=== PATIENT | male | born 1985 ===

== ENCOUNTER 2017-10-19 01:21 | Emergency (ER) | payer OTHER ==
[2017-10-19 01:35] VITALS: BMI 26.4
--- NOTE | 2017-10-19 01:57 | C.PDOC ---
History Of Present Illness Pt was brought in for alcohol intoxication. Pt states that he has been drinking. Pt became agitated, combative and needed to be restrained for his safety as well as the safety of the staff. Placed on 1:1 observation. Time Seen by Provider: 10/19/17 01:57 Chief Complaint (Nursing): Substance Abuse History Per: Patient, EMS History/Exam Limitations: intoxication Onset/Duration Of Symptoms: Unknown Current Symptoms Are (Timing): Still Present Suicide/Self Injury Attempted (Context): None Modifying Factor(s): Alcohol Severity: Moderate Pain Scale Rating Of: 4 Associated Symptoms: Agitation. denies: Suicidal Thoughts Involuntary Hold By: None Recent travel outside of the [place]: No Additional History Per: Patient, EMS Past Medical History Reviewed: Historical Data, Nursing Documentation, Vital Signs Vital Signs: Last Vital Signs Temp 97.5 F L 10/19/17 01:36 Pulse 100 H 10/19/17 05:50 Resp 21 10/19/17 05:50 BP 129/73 10/19/17 05:50 Pulse Ox 97 10/19/17 05:54 Family History: States: No Known Family Hx - Social History Hx Alcohol Use: Yes (UNKNOWN) Hx Substance Use: No (UNKNOWN) Review Of Systems Review Of Systems: ROS cannot be obtained secondary to pt's inabilty to answer questions. Physical Exam - Physical Exam Appears: Combative, Agitated Skin: Warm, Dry Head: Other (2x3 cm superficial hematom r temporoparietal region, no crepitus) Eye(s): bilateral: Normal Inspection Nose: Normal Oral Mucosa: Moist Lips: Normal Appearing Neck: Supple Chest: Symmetrical Cardiovascular: Rhythm Regular Respiratory: No Rales, No Rhonchi, No Wheezing Gastrointestinal/Abdominal: Soft, No Tenderness, No Distention Back: Normal Inspection Extremity: Normal ROM Extremity: Bilateral: Atraumatic Pulses: Left Dorsalis Pedis: Normal, Right Dorsalis Pedis: Normal Neurological/Psych: Other (moves all extrmities) Gait: Unsteady ED Course And Treatment - Laboratory Results Result Diagrams: 10/19/17 02:07 10/19/17 02:07 O2 Sat by Pulse Oximetry: 97 Pulse Ox Interpretation: Normal - CT Scan/US Head CT Other Rad Studies (CT/US): Interpreted By Me, Read By Radiologist CT/US Interpretation: EXAM: CT Head Without Intravenous Contrast. CLINICAL HISTORY: 40 years old, male; Signs and symptoms; Other: Toxicated; Additional info: ETOH intox, r tempal. area hematoma. Pt severely toxicated and unapplied to sedated and he was moving too much. I. wasn't apple to complete the study,. TECHNIQUE: Axial computed tomography images of the head/brain without intravenous contrast. All CT scans at. this facility use one or more dose reduction techniques, viz.: automated exposure control; ma/kV. adjustment per patient size (including targeted exams where dose is matched to indication; i.e. head);. or iterative reconstruction technique. 391 images are submitted.Sagittal , axial and coronal MPR. reformatted images are submitted. Additional info: ETOH intox, r tempal area hematoma. Pt severely. intoxicated and unapplied to sedated and he was moving too much. I wasn't apple to complete the. study,. COMPARISON: No relevant prior studies available. FINDINGS: Artifacts: Limited due to motion and misregistration artifacts. Brain: Superior portion of the brain is not included in the examination. No hemorrhage. No. significant white matter disease. Ventricles: Unremarkable. No ventriculomegaly. Bones/joints: Nonspecific nasal deformity seen on image 101 series 601. Correlation with clinical. data is recommended if acute nasal fracture is clinically suspected. Soft tissues: Unremarkable. Sinuses: Patchy sinus disease. Mastoid air cells: Unremarkable. No mastoid effusion. Orbits: Globe and lens are intact. IMPRESSION: 1. Incomplete examination. Limited due to motion. As shown no definite hemorrhage is identified. If. clinical concern persists repeat examination without motion would be helpful. 2. Nonspecific nasal deformity seen on image 101 series 601. Correlation with clinical data is. recommended if acute nasal fracture is clinically suspected. Disposition Counseled Patient/Family Regarding: Studies Performed, Diagnosis - Disposition Disposition Time: 01:57 Condition: UNKNOWN Forms: [employer] (Lebanese) - Clinical Impression Clinical Impression: Alcohol intoxication Physician Patient Turnover Patient Signed Over To: Danica Elias Handoff Comments: pending sobriety and re-eval
[2017-10-19 02:14] LABS: BASO # 0.1 K/uL (0.0-0.2); BASO % 1.1 % (0.0-2.0); EOS # 0.1 K/uL (0.0-0.7); EOS % 0.7 % (0.0-4.0); HEMOGLOBIN 14.3 g/dL (12.0-18.0); LYMPH # 2.6 K/uL (1.0-4.3); MEAN CELL VOLUME 90.8 fL (80.0-94.0); MEAN CORPUSCULAR HEMOGLOBIN 30.8 pg (27.0-31.0); MEAN PLATELET VOLUME 8.2 fL (7.2-11.7); MONO # 1.2 K/uL (0.0-0.8); MONO % 13.1 % (0.0-10.0); NEUT # 5.3 K/uL (1.8-7.0); NEUT % 57.1 % (50.0-75.0); NRBC % 0.1 % (0.0-2.0); RBC 4.63 Mil/uL (4.40-5.90); RED CELL DISTRIBUTION WIDTH 12.8 % (11.5-14.5); WHITE BLOOD COUNT 9.2 K/uL (4.8-10.8)
[2017-10-19 02:18] LABS: URINE BILIRUBIN NEGATIVE (NEGATIVE); URINE BLOOD NEGATIVE (NEGATIVE); URINE CLARITY Clear (Clear); URINE COLOR Colorless (YELLOW); URINE GLUCOSE (UA) NORMAL (Normal); URINE LEUKOCYTE ESTERASE NEG Leu/uL (Negative); URINE PROTEIN NEGATIVE (NEGATIVE); URINE UROBILINOGEN NORMAL mg/dL (0.2-1.0)
[2017-10-19 02:31] LABS: BARBITURATES, UR NEGATIVE (NEGATIVE); BENZODIAZEPINES, UR NEGATIVE (NEGATIVE); OPIATES, UR NEGATIVE (NEGATIVE); PHENCYCLIDINE, UR NEGATIVE (NEGATIVE)
[2017-10-19 02:34] LABS: ALB/GLOB RATIO 1.2 (1.0-2.1); ALBUMIN 4.6 g/dL (3.5-5.0); ALT/SGPT 23 U/L (21-72); AST/SGOT 24 U/L (17-59); BLOOD UREA NITROGEN 11 mg/dL (9-20); CALCIUM 8.1 mg/dl (8.6-10.4); GFR AFRICAN-AMERICAN > 60; GFR NON-AFRICAN AMERICAN > 60
--- NOTE | 2017-10-19 05:40 | CT ---
EXAM: CT Head Without Intravenous Contrast CLINICAL HISTORY: 40 years old, male; Signs and symptoms; Other: Toxicated; Additional info: ETOH intox, r tempal area hematoma. Pt severely toxicated and unapplied to sedated and he was moving too much. I wasn't apple to complete the study, TECHNIQUE: Axial computed tomography images of the head/brain without intravenous contrast. All CT scans at this facility use one or more dose reduction techniques, viz.: automated exposure control; ma/kV adjustment per patient size (including targeted exams where dose is matched to indication; i.e. head); or iterative reconstruction technique. 391 images are submitted.Sagittal , axial and coronal MPR reformatted images are submitted. Additional info: ETOH intox, r tempal area hematoma. Pt severely intoxicated and unapplied to sedated and he was moving too much. I wasn't apple to complete the study, COMPARISON: No relevant prior studies available. FINDINGS: Artifacts: Limited due to motion and misregistration artifacts. Brain: Superior portion of the brain is not included in the examination. No hemorrhage. No significant white matter disease. Ventricles: Unremarkable. No ventriculomegaly. Bones/joints: Nonspecific nasal deformity seen on image 101 series 601. Correlation with clinical data is recommended if acute nasal fracture is clinically suspected. Soft tissues: Unremarkable. Sinuses: Patchy sinus disease. Mastoid air cells: Unremarkable. No mastoid effusion. Orbits: Globe and lens are intact. IMPRESSION: 1. Incomplete examination. Limited due to motion. As shown no definite hemorrhage is identified. If clinical concern persists repeat examination without motion would be helpful. 2. Nonspecific nasal deformity seen on image 101 series 601. Correlation with clinical data is recommended if acute nasal fracture is clinically suspected.
[2017-10-19 06:59] VITALS: TEMP 98
[2017-10-19 07:33] VITALS: RESP 18
--- NOTE | 2017-10-19 09:36 | CT ---
PROCEDURE: CT HEAD WITHOUT CONTRAST HISTORY: head injury, incomplete prior CT scan COMPARISON: CT head 10/19/2017 at 5:01 a.m. TECHNIQUE: Axial computed tomography images were obtained through the head/brain without intravenous contrast. Radiation dose: Total exam DLP = 972 mGy-cm. FINDINGS: HEMORRHAGE: No intracranial hemorrhage seen. BRAIN: No mass effect or edema. No atrophy or chronic microvascular ischemic changes. VENTRICLES: Unremarkable. No hydrocephalus. CALVARIUM: Intact PARANASAL SINUSES: Moderate mucosal thickening in the ethmoid sinuses. Partially visualized mild mucosal thickening bilateral maxillary sinuses. Remainder of the Visualized paranasal sinuses are clear. MASTOID AIR CELLS: Visualized mastoid air cells are clear. OTHER FINDINGS: Mild inflammatory changes in the right high parietal scalp. IMPRESSION: No mass, hemorrhage, or acute infarct identified.
[2017-10-19 12:20] VITALS: BP 97/55; PULSE 87; O2SAT 95
== END 2017-10-19 14:14 | disposition home or self-care (01) ==
LOC: EDBD 01:21 → C.ER 01:21
DX: F10.129 Alcohol abuse with intoxication, unspecified (principal)
CPT/HCPCS: 70450; 80053; 80320; 80324; 80345; 80346; 80349; 80353; 80358; 80361; 81001; 82948; 83992; 85025; 96372; 96374; 99285; J1630; J2060

== ENCOUNTER 2018-05-31 01:11 | Emergency (ER) | payer OTHER ==
[2018-05-31 01:11] VITALS: BMI 26.4
[2018-05-31 02:02] VITALS: O2SAT 95
--- NOTE | 2018-05-31 04:15 | C.PDOC ---
History Of Present Illness 32 year old male presents to the ER with acute ETOH intoxication. Patient admits to drinking tonight, he is arousable and answers questions appropriately. Denies any complaints at this time. Time Seen by Provider: 05/31/18 02:14 Chief Complaint (Nursing): Substance Abuse History Per: Patient History/Exam Limitations: no limitations Onset/Duration Of Symptoms: Hrs Current Symptoms Are (Timing): Still Present Suicide/Self Injury Attempted (Context): None Modifying Factor(s): Alcohol Associated Symptoms: denies: Depression, Suicidal Thoughts Recent travel outside of the [place]: No Past Medical History Reviewed: Historical Data, Nursing Documentation, Vital Signs Vital Signs: Last Vital Signs Temp 98.8 F 05/31/18 01:55 Pulse 89 05/31/18 01:55 Resp 20 05/31/18 01:55 BP 136/77 05/31/18 01:55 Pulse Ox 95 05/31/18 01:55 Family History: States: Unknown Family Hx - Social History Hx Alcohol Use: Yes (UNKNOWN) Hx Substance Use: No (UNKNOWN) - Immunization History Hx Tetanus Toxoid Vaccination: No Hx Influenza Vaccination: No Hx Pneumococcal Vaccination: No Review Of Systems Constitutional: Negative for: Fever, Chills Cardiovascular: Negative for: Chest Pain, Palpitations Respiratory: Negative for: Cough, Shortness of Breath Gastrointestinal: Negative for: Nausea, Vomiting Physical Exam - Physical Exam Appears: Non-toxic, Other (ETOH on breath, no sign of injury) Skin: Normal Color, Warm, Dry Head: Atraumatic, Normacephalic Eye(s): bilateral: Normal Inspection Oral Mucosa: Moist Chest: Symmetrical, No Tenderness Cardiovascular: Rhythm Regular Respiratory: Normal Breath Sounds, No Rales, No Rhonchi, No Wheezing Gastrointestinal/Abdominal: Soft, No Tenderness Extremity: Normal ROM (x4) Neurological/Psych: Oriented x3, Normal Speech ED Course And Treatment O2 Sat by Pulse Oximetry: 95 (Room air) Pulse Ox Interpretation: Normal Progress Note: Accucheck on arrival was 85, orange juice was given. Patient with acute ETOH intoxication, will allow to sleep and will discharge when he is clinically sober. On reevaluation, patient is awake, alert, and orientedx3, ambulatory with steady gait, vitals are stable, will discharge. Disposition Counseled Patient/Family Regarding: Diagnosis, Need For Followup, Rx Given - Disposition Disposition: HOME/ ROUTINE Disposition Time: 04:38 Condition: STABLE Additional Instructions: Please follow up in clinic Recommend detox outpatiently Instructions: Alcohol Abuse and Alcoholism (DC) Forms: [employer] (Lithuanian) - Clinical Impression Clinical Impression: Alcohol abuse - PA / PASTOR / Resident Statement MD/DO has reviewed & agrees with the documentation as recorded. - Scribe Statement The provider has reviewed the documentation as recorded by the Scribe Billy Ferguson All medical record entries made by the Scribe were at my direction and personally dictated by me. I have reviewed the chart and agree that the record accurately reflects my personal performance of the history, physical exam, medical decision making, and the department course for this patient. I have also personally directed, reviewed, and agree with the discharge instructions and disposition.
[2018-05-31 04:44] VITALS: BP 140/70; PULSE 92; RESP 18; TEMP 98.1
== END 2018-05-31 04:42 | disposition home or self-care (01) ==
LOC: C.ER 01:11
DX: F10.129 Alcohol abuse with intoxication, unspecified (principal); Y90.9 Presence of alcohol in blood, level not specified

== ENCOUNTER 2018-06-01 03:25 | Emergency (ER) | payer OTHER ==
[2018-06-01 03:25] VITALS: BMI 26.4
--- NOTE | 2018-06-01 04:36 | C.PDOC ---
History Of Present Illness 32 year old male is brought to the ED for psych evaluation. Patient reports he was involved in an argument with his brother in law earlier today. Patient became aggressive and 911 was called. Patient reports he went off his psych meds and is requesting crisis evaluation to get a refill. Patient reports he used marijuana earlier today. Patient denies alcohol use, SI/HI, hallucinations, trauma, injury, fall, CP, SOB. <Purvi Hardy - Last Filed: 06/01/18 06:26> <Ramandeep Parry - Last Filed: 06/01/18 06:03> History Per: Patient History/Exam Limitations: no limitations Onset/Duration Of Symptoms: Days Current Symptoms Are (Timing): Still Present Suicide/Self Injury Attempted (Context): None Modifying Factor(s): Marijuana Associated Symptoms: Anger, Agitation. denies: Depression, Suicidal Thoughts, Suicidal Plan Recent travel outside of the [place]: No Additional History Per: Patient <Purvi Hardy - Last Filed: 06/01/18 06:26> Chief Complaint (Nursing): Substance Abuse Past Medical History Vital Signs: Last Vital Signs Temp 98.3 F 06/01/18 03:38 Pulse 85 06/01/18 03:38 Resp 14 06/01/18 03:38 BP 163/95 H 06/01/18 03:38 Pulse Ox 99 06/01/18 04:37 <Ramandeep Parry - Last Filed: 06/01/18 06:03> Reviewed: Historical Data, Nursing Documentation, Vital Signs Vital Signs: Last Vital Signs Temp 98.3 F 06/01/18 03:38 Pulse 85 06/01/18 03:38 Resp 14 06/01/18 03:38 BP 163/95 H 06/01/18 03:38 Pulse Ox 99 06/01/18 03:38 - Medical History PMH: Depression Surgical History: No Surg Hx Family History: States: Unknown Family Hx - Social History Hx Alcohol Use: Yes (UNKNOWN) Hx Substance Use: No (UNKNOWN) - Immunization History Hx Tetanus Toxoid Vaccination: No Hx Influenza Vaccination: No Hx Pneumococcal Vaccination: No <Purvi Hardy - Last Filed: 06/01/18 06:26> Review Of Systems Constitutional: Negative for: Fever, Chills Eyes: Negative for: Vision Change Cardiovascular: Negative for: Chest Pain Respiratory: Negative for: Shortness of Breath Gastrointestinal: Negative for: Nausea, Vomiting, Abdominal Pain Skin: Negative for: Rash Psych: Negative for: Depression, Suicidal ideation <Purvi Hardy - Last Filed: 06/01/18 06:26> Physical Exam - Physical Exam Appears: Non-toxic, No Acute Distress Skin: Normal Color, Warm, Dry Head: Atraumatic, Normacephalic Eye(s): bilateral: Normal Inspection Neck: Normal ROM, Supple Chest: Symmetrical Cardiovascular: Rhythm Regular Respiratory: Normal Breath Sounds, No Rales, No Rhonchi, No Wheezing Gastrointestinal/Abdominal: Soft, No Tenderness, No Guarding, No Rebound Extremity: Normal ROM, No Tenderness, No Swelling Neurological/Psych: Oriented x3, Normal Speech, Normal Cognition Gait: Steady <Purvi Hardy - Last Filed: 06/01/18 06:26> ED Course And Treatment - Laboratory Results Result Diagrams: 06/01/18 04:48 06/01/18 04:48 Pulse Ox Interpretation: Normal Progress Note: Patient was cleared for discharge by dr snow <Ramandeep Parry - Last Filed: 06/01/18 06:03> - Laboratory Results Result Diagrams: 06/01/18 04:48 06/01/18 04:48 O2 Sat by Pulse Oximetry: 99 (On RA) Pulse Ox Interpretation: Normal Progress Note: Plan: - Labs. - UA. - Crisis evaluation. Pt remained stable, cooperative, andwas cleared for discharge by Dr snow and will f/u today at [facility] <Purvi Hardy - Last Filed: 06/01/18 06:26> Disposition Counseled Patient/Family Regarding: Studies Performed, Diagnosis, Need For Followup - Disposition Disposition Time: 03:40 <Ramandeep Parry - Last Filed: 06/01/18 06:03> <Purvi Hardy - Last Filed: 06/01/18 06:26> - Disposition Disposition: HOME/ ROUTINE Condition: FAIR Additional Instructions: Please follow up at [facility] today Instructions: Alcohol Abuse and Alcoholism (DC), Bipolar Disorder (DC) Forms: [email or web address] (Uzbek) - Clinical Impression Clinical Impression: Bipolar 1 disorder, Alcohol intoxication - PA / [employer] TEACHER / Resident Statement MD/DO has reviewed & agrees with the documentation as recorded. - Scribe Statement The provider has reviewed the documentation as recorded by the Scribe Zelalem Washburn All medical record entries made by the Scribe were at my direction and pers onally dictated by me. I have reviewed the chart and agree that the record accurately reflects my personal performance of the history, physical exam, medical decision making, and the department course for this patient. I have also personally directed, reviewed, and agree with the discharge instructions and disposition. <Purvi Hardy - Last Filed: 06/01/18 06:26>
[2018-06-01 04:51] LABS: BASO # 0.1 K/uL (0.0-0.2); BASO % 0.8 % (0.0-2.0); EOS # 0.1 K/uL (0.0-0.7); EOS % 0.5 % (0.0-4.0); LYMPH # 2.7 K/uL (1.0-4.3); LYMPH % 26.5 % (20.0-40.0); MEAN CELL VOLUME 91.4 fL (80.0-94.0); MEAN CORPUSCULAR HEMOGLOBIN 30.6 pg (27.0-31.0); MEAN CORPUSCULAR HGB CONC 33.4 g/dL (33.0-37.0); MEAN PLATELET VOLUME 7.7 fL (7.2-11.7); MONO # 1.1 K/uL (0.0-0.8); MONO % 10.9 % (0.0-10.0); NEUT # 6.2 K/uL (1.8-7.0); NEUT % 61.3 % (50.0-75.0); RBC 4.92 Mil/uL (4.40-5.90); RED CELL DISTRIBUTION WIDTH 14.3 % (11.5-14.5); WHITE BLOOD COUNT 10.2 K/uL (4.8-10.8)
[2018-06-01 04:55] LABS: SQUAMOUS EPITHIAL < 1 /hpf (0-5); URINE BILIRUBIN NEGATIVE (NEGATIVE); URINE BLOOD NEGATIVE (NEGATIVE); URINE CLARITY Clear (Clear); URINE COLOR Yellow (YELLOW); URINE GLUCOSE (UA) NORMAL (Normal); URINE LEUKOCYTE ESTERASE NEG Leu/uL (Negative); URINE PROTEIN 1+ mg/dL (NEGATIVE); URINE UROBILINOGEN NORMAL mg/dL (0.2-1.0)
[2018-06-01 05:04] LABS: ALB/GLOB RATIO 1.5 (1.0-2.1); ALBUMIN 4.8 g/dL (3.5-5.0); ALT/SGPT 35 U/L (21-72); AST/SGOT 50 U/L (17-59); BLOOD UREA NITROGEN 14 mg/dL (9-20); GFR NON-AFRICAN AMERICAN > 60
[2018-06-01 05:13] LABS: BARBITURATES, UR NEGATIVE (NEGATIVE); BENZODIAZEPINES, UR NEGATIVE (NEGATIVE); OPIATES, UR NEGATIVE (NEGATIVE); PHENCYCLIDINE, UR NEGATIVE (NEGATIVE)
[2018-06-01 06:14] VITALS: BP 132/83; PULSE 93; RESP 16; TEMP 98.7
[2018-06-01 06:27] VITALS: O2SAT 99
== END 2018-06-01 06:14 | disposition home or self-care (01) ==
LOC: C.ER 03:25
DX: F31.9 Bipolar disorder, unspecified (principal); F10.129 Alcohol abuse with intoxication, unspecified; Y90.7 Blood alcohol level of 200-239 mg/100 ml